=== PATIENT | female | born 1935 | race Asian ===

== ENCOUNTER 2020-09-21 17:42 | Inpatient (IN) | payer MEDICARE, OTHER ==
[~2020-09-21] VITALS: Ht 160 cm; Wt 75.3 kg
--- NOTE | 2020-09-21 18:00 | NUR ---
The patient is [facility] From [facility] "Voluntary admit to [facility]. Medically cleared need to be seen by LAB ANIMAL TECHNICIAN/PET". The patient has auditory hallucinations but does not specify what are the hallucinations about. Denies pain. In room air and denies SOB. Respiration regular and unlabored. Will continue to monitor the patient.
--- NOTE | 2020-09-21 18:48 | NUR ---
PINKY AT BEDSIDE FOR CRISIS EVAL
--- NOTE | 2020-09-21 19:03 | NUR ---
BED 211-1
--- NOTE | 2020-09-21 19:24 | NUR ---
PATIENT IS ON A HOLD. INFORMED RENETTA RN. PATIENT TRANSFERRED TO ROOM 211-A IN STABLE CONDITION.
[2020-09-21] MEDS ORDERED: ACETAMINOPHEN 325 MG TABLET PO PRN (20:00)
[2020-09-21] MEDS ORDERED: MAG HYDROX/AL HYDROX/SIMETH 30 ML UDC PO PRN (20:00)
[2020-09-21] MEDS ORDERED: MAGNESIUM HYDROXIDE 30 ML UDC PO PRN (20:00)
[2020-09-21] MEDS ORDERED: LORAZEPAM 0.5 MG TABLET PO PRN (20:00)
[2020-09-21] MEDS ORDERED: ZOLPIDEM TARTRATE 5 MG TABLET PO PRN (20:00)
[2020-09-21] MEDS ORDERED: AMLO5TAB4 PO (20:12)
[2020-09-21] MEDS ORDERED: AMYL1CAP58 PO (20:14)
[2020-09-21] MEDS ORDERED: CARV3.122 PO (20:15)
[2020-09-21] MEDS ORDERED: CELE200C PO (20:15)
[2020-09-21] MEDS ORDERED: ESCI20TA PO (20:16)
[2020-09-21] MEDS ORDERED: GEMF600T90 PO (20:17)
[2020-09-21] MEDS ORDERED: HYDR-4303 PO (20:21)
[2020-09-21] MEDS ORDERED: LEVO5TAB13 PO (20:22)
[2020-09-21] MEDS ORDERED: ONDA-97 PO (20:25)
[2020-09-21] MEDS ORDERED: PANT40TA49 PO (20:26)
[2020-09-21 20:27] VITALS: BP 138/75
[2020-09-21] MEDS ORDERED: SIME180C70 PO (20:30)
[2020-09-21] MEDS ORDERED: SIMV-46 PO (20:31)
[2020-09-21] MEDS ORDERED: ZIPR20CA2 PO (20:32)
[2020-09-21] MEDS ORDERED: BLOOD SUGAR DIAGNOSTIC 1 EACH STRIP IN ONE (21:00)
--- NOTE | 2020-09-21 22:30 | NUR ---
RN NOTES: NOTIFED LAWN CARE SPECIALIST DR. MARIE , REGARDING ABOUT NEW ADMISSION MED RECON.
[2020-09-21 22:42] VITALS: BP 130/74
--- NOTE | 2020-09-21 22:56 | NUR ---
ADMISSION NOTES: ADMITTED THIS 85Y/O FEMALE PATIENT ADMIT FROM [facility] ER /INTALLY FROM [facility], ADMITTED TO GPS ON 5150 HOLD, GRAVELY DISABLE, DTS, PER HOLD PT. AUDITORY HALLUCINATION AND ATTEMPTED OVER DOSE ,UPON FACE TO FACE ASSESSMENT PATIENT IS A&O X ,2 DISORGNIZED, COOPERTIVE, REDIRDTABLE , DENIES SI /HI AT THIS TIME, PT. IS POOR HISTORIAN, POOR INSIGHT ,POOR JUDGEMENT , PT. REFUSED TO SIGNS ADMISSION CONSENT PAPERS , DUE TO MENTAL STATUS , BOTH MD AWARE AND NOTIFIED OF THE ADMISSION, BELONGINGS CONTRABAND WERE DONE , NURSING ASSESSMENT DONE ,PT. RIGHTS DISCUSS BY AIR DEFENSE CONTROL OFFICER , PROVIDE THE PT. WITH HANDBOOK, AND MEDICATIONS GUIDE, ENVIRONMENTAL SAFETY CHECK DONE, ENCOURAGED PT. VERBALIZED ANY FEELING CONCERN TO STAFF, ORIENT TO UNIT POLICY, NO ACUTE DISTRESS NOTED,VITAL SIGNS WNL ,DENIES ANY PAIN AT THIS TIME,WILL CONTINUE TO MONITOR FOR Q15 SAFETY AND BEHAVIOR.
[2020-09-22 06:50] LABS: BASOPHILS % (AUTO) 0.4 % (0.0-2.0); EOSINOPHILS % (AUTO) 1.7 % (0.0-6.0); HEMATOCRIT 39 % (33-45); HEMOGLOBIN 12.5 g/dL (11.5-14.8); LYMPHOCYTES # (AUTO) 1.8 K/uL (0.8-4.8); LYMPHOCYTES % (AUTO) 21.4 % (20.0-44.0); MEAN CORPUSCULAR HGB CONC 33 g/dl (31.0-36.0); MEAN CORPUSCULAR VOLUME 97 fL (82-100); MONOCYTES # (AUTO) 0.8 K/uL (0.1-1.30); MONOCYTES % (AUTO) 9.4 % (2.0-12.0); NEUTROPHILS # (AUTO) 5.8 K/uL (1.8-8.9); NEUTROPHILS % (AUTO) 67.1 % (43.0-81.0); PLATELET COUNT (AUTO) 169 K/uL (150-450); RED BLOOD CELL COUNT(AUTO) 3.99 MIL/uL (4.0-5.2); WHITE BLOOD COUNT (AUTO) 8.6 K/uL (4.3-11.0)
[2020-09-22 06:58] LABS: POTASSIUM 3.9 mmol/L (3.5-5.1)
[2020-09-22 08:00] VITALS: BP 151/56
[2020-09-22] MEDS ORDERED: SIMETHICONE 80 MG TAB.CHEW PO PRN (11:30)
[2020-09-22] MEDS ORDERED: HYDROCODONE/APAP 5/325MG TABLET PO PRN (11:30)
[2020-09-22] MEDS ORDERED: ONDANSETRON 4 MG TAB.RAPDIS PO PRN (12:00)
[2020-09-22] MEDS: AMLODIPINE BESYLATE 5 MG TABLET PO SCH (12:03)
[2020-09-22] MEDS: LIPASE/PROTEASE/AMYLASE 1 EACH CAPSULE.DR PO SCH ×2 (12:43→17:43)
[2020-09-22] MEDS: risperiDONE 0.25 MG TABLET PO SCH (16:10)
[2020-09-22 16:11] VITALS: BP 148/67
[2020-09-22] MEDS: CARVEDILOL 3.125 MG TABLET PO SCH (16:11)
[2020-09-22] MEDS: GEMFIBROZIL 600 MG TABLET PO SCH (16:12)
--- NOTE | 2020-09-22 17:22 | NUR ---
GPS RN NOTE: NEUROLOGY CONSULT DR. MACDONALD ORDER BY DR STARKEY .OFFICE CLOSE AT THIS TIME WILL INDORSE TO INCOMING RN TO FOLLOW UP
[2020-09-22] MEDS: SIMVASTATIN 20 MG TABLET PO SCH (17:43)
[2020-09-22 19:50] VITALS: BP 115/64
[2020-09-22 20:09] VITALS: BP 115/64
[2020-09-22] MEDS: CELECOXIB 100 MG CAPSULE PO SCH (20:58)
[2020-09-23 08:00] VITALS: BP 150/73
[2020-09-23] MEDS: LIPASE/PROTEASE/AMYLASE 1 EACH CAPSULE.DR PO SCH ×3 (08:00→18:30)
[2020-09-23] MEDS: CARVEDILOL 3.125 MG TABLET PO SCH ×2 (09:13→17:47)
[2020-09-23] MEDS: CELECOXIB 100 MG CAPSULE PO SCH ×2 (09:14→21:26)
[2020-09-23] MEDS: VENLAFAXINE XR 75 MG CAP.SR.24H PO SCH (09:14)
[2020-09-23] MEDS: risperiDONE 0.25 MG TABLET PO SCH ×2 (09:14→17:47)
[2020-09-23] MEDS: GEMFIBROZIL 600 MG TABLET PO SCH ×2 (09:14→17:47)
[2020-09-23] MEDS: PANTOPRAZOLE 40 MG TABLET.DR PO SCH (09:14)
[2020-09-23] MEDS: AMLODIPINE BESYLATE 5 MG TABLET PO SCH (09:15)
[2020-09-23 16:00] VITALS: BP 135/66
[2020-09-23] MEDS: SIMVASTATIN 20 MG TABLET PO SCH (18:30)
[2020-09-23 20:00] VITALS: BP 151/67
--- NOTE | 2020-09-23 20:08 | NUR ---
GPS RN OPENING NOTES: RECEIVED PATIENT SLEEP IN BED AROUSABLE TO VERBAL STIMULI, NO COMPLAIN OF PAIN AND DISCOMFORT AT THIS TIME, PATIENT APPEARS CALM, VERBALLY RESPONSIVE, BED IN LOW POSITION , CALL LIGHTS WITHIN REACH, KEPT CLEAN AND DRY, WILL CONTINUE TO MONITOR.
[2020-09-24] MEDS: LIPASE/PROTEASE/AMYLASE 1 EACH CAPSULE.DR PO SCH ×3 (07:49→17:43)
[2020-09-24] MEDS: PANTOPRAZOLE 40 MG TABLET.DR PO SCH (07:49)
[2020-09-24 08:00] VITALS: BP 138/80
[2020-09-24] MEDS: GEMFIBROZIL 600 MG TABLET PO SCH ×2 (08:27→17:43)
[2020-09-24] MEDS: CELECOXIB 100 MG CAPSULE PO SCH ×2 (08:27→21:22)
[2020-09-24] MEDS: CARVEDILOL 3.125 MG TABLET PO SCH ×2 (08:28→17:43)
[2020-09-24] MEDS: VENLAFAXINE XR 75 MG CAP.SR.24H PO SCH (08:28)
[2020-09-24] MEDS: risperiDONE 0.25 MG TABLET PO SCH ×2 (08:28→17:46)
[2020-09-24] MEDS: AMLODIPINE BESYLATE 5 MG TABLET PO SCH (08:28)
--- NOTE | 2020-09-24 09:34 | NUR ---
RN NOTE- PT IN ROOM, REQUESTING TO GO HOME, MED COMPLIANT PO INTAKE FAIR , A BIT GUARDED AND PARANOID, DEPRESSED, DENIES [facility] SI HI
--- NOTE | 2020-09-24 11:35 | NUR ---
Family Contact: SW called the pts son, Jens ([phone]), and discussed the pts discharge plan to return to her home once she is stable.
--- NOTE | 2020-09-24 12:49 | NUR ---
Initial Discharge Plan: Pt currently resides at her apartment located at [address] [place] [address], [address] [address]; ([phone]). Per pt, she would like to return to her home. SW will work with the pt and pts MD regarding appropriate discharge planning. SW will form a safe and proper discharge.
[2020-09-24 16:00] VITALS: BP 183/90
[2020-09-24] MEDS: SIMVASTATIN 20 MG TABLET PO SCH (17:43)
[2020-09-24 20:00] VITALS: BP 145/80
--- NOTE | 2020-09-25 06:09 | NUR ---
GPS RN CLOSING NOTE PT A/OX2 CONFUSED AT TIMES; LYING IN BED. TOLERATING ROOM AIR WELL WITH NO SOB. NO S/SX OF PAIN AT THIS TIME. NO ACUTE DISTRESS NOTED. DENIES SI/HI AT THIS TIME. COMPLIANT WITH CARE AND MEDS AT THIS TIME. SAFETY MEASURES IN PLACE: BED IN LOWEST LOCKED POSITION, SIDE RAILS UPX2. WILL ENDORSE PLAN OF CARE TO ONCOMING MORNING RN
[2020-09-25 08:00] VITALS: BP 154/77
[2020-09-25] MEDS: risperiDONE 0.25 MG TABLET PO SCH ×2 (08:22→17:20)
[2020-09-25] MEDS: LIPASE/PROTEASE/AMYLASE 1 EACH CAPSULE.DR PO SCH ×3 (08:22→17:20)
[2020-09-25] MEDS: VENLAFAXINE XR 75 MG CAP.SR.24H PO SCH (08:22)
[2020-09-25] MEDS: GEMFIBROZIL 600 MG TABLET PO SCH ×2 (08:22→17:21)
[2020-09-25] MEDS: CARVEDILOL 3.125 MG TABLET PO SCH ×2 (08:23→17:21)
[2020-09-25] MEDS: CELECOXIB 100 MG CAPSULE PO SCH ×2 (08:24→20:58)
[2020-09-25] MEDS: PANTOPRAZOLE 40 MG TABLET.DR PO SCH (08:24)
[2020-09-25] MEDS: AMLODIPINE BESYLATE 5 MG TABLET PO SCH (08:24)
[2020-09-25] MEDS: VENLAFAXINE XR 37.5 MG CAP.SR.24H PO SCH (08:30)
[2020-09-25] MEDS: SIMVASTATIN 20 MG TABLET PO SCH (17:20)
[2020-09-25 20:00] VITALS: BP 110/71
[2020-09-26] MEDS: PANTOPRAZOLE 40 MG TABLET.DR PO SCH (07:58)
[2020-09-26 08:00] VITALS: BP 158/78
[2020-09-26] MEDS: CELECOXIB 100 MG CAPSULE PO SCH ×2 (08:32→20:49)
[2020-09-26] MEDS: GEMFIBROZIL 600 MG TABLET PO SCH ×2 (08:32→16:25)
[2020-09-26] MEDS: risperiDONE 0.25 MG TABLET PO SCH ×2 (08:32→16:25)
[2020-09-26] MEDS: CARVEDILOL 3.125 MG TABLET PO SCH ×2 (08:33→16:28)
[2020-09-26] MEDS: VENLAFAXINE XR 37.5 MG CAP.SR.24H PO SCH (08:33)
[2020-09-26] MEDS: LIPASE/PROTEASE/AMYLASE 1 EACH CAPSULE.DR PO SCH ×3 (08:33→17:49)
[2020-09-26] MEDS: AMLODIPINE BESYLATE 5 MG TABLET PO SCH (08:34)
--- NOTE | 2020-09-26 09:00 | NUR ---
RN NOTE: PT IN ROOM, MED COMPLIANT PO INTAKE FAIR, DEPRESSED, DENIES [facility] SI HI PT VISIBLE IN UNIT, AMBULATORY WITH FWW
--- NOTE | 2020-09-26 11:01 | NUR ---
Family contact: SW called the pts son, Jens ([phone]) and informed him that pt is going to be discharged on Thursday09/28/2020. Pts son reports that he can picker and packer pt from [facility]. Pts son reports that pts is under the care of mixer blender [place] ([phone]). SW reports that she will make a follow up appointment for pt.
[2020-09-26 16:00] VITALS: BP 129/61
--- NOTE | 2020-09-26 16:05 | NUR ---
Contact with [facility]: SW contacted [facility] located at [address], [place] [address]; ; fax: to schedule an intake appt for pt. The intake appointment is scheduled for October 04, 2020 @ 10:30 am.
--- NOTE | 2020-09-26 16:08 | NUR ---
Contact with [facility]: VIJAY contacted the appointment line at [facility] located at [address]. [place], [place]; . VIJAY scheduled a follow up appt for pt with manager office Dr. Flores for October 03, 2020 at 11:30 am.
[2020-09-26] MEDS: SIMVASTATIN 20 MG TABLET PO SCH (17:49)
[2020-09-26 20:26] VITALS: BP 163/85
[2020-09-27 08:00] VITALS: BP 156/70
[2020-09-27] MEDS: VENLAFAXINE XR 37.5 MG CAP.SR.24H PO SCH (08:25)
[2020-09-27] MEDS: GEMFIBROZIL 600 MG TABLET PO SCH ×2 (08:25→16:43)
[2020-09-27] MEDS: PANTOPRAZOLE 40 MG TABLET.DR PO SCH (08:25)
[2020-09-27] MEDS: LIPASE/PROTEASE/AMYLASE 1 EACH CAPSULE.DR PO SCH ×3 (08:25→18:14)
[2020-09-27] MEDS: AMLODIPINE BESYLATE 5 MG TABLET PO SCH (08:26)
[2020-09-27] MEDS: CELECOXIB 100 MG CAPSULE PO SCH ×2 (08:26→20:38)
[2020-09-27] MEDS: risperiDONE 0.25 MG TABLET PO SCH ×2 (08:26→16:43)
[2020-09-27] MEDS: CARVEDILOL 3.125 MG TABLET PO SCH ×2 (08:26→16:44)
--- NOTE | 2020-09-27 10:14 | NUR ---
Probable cause hearing: Pts 5250 hold was upheld on the grounds of gravely disabled.
--- NOTE | 2020-09-27 14:50 | NUR ---
Family contact: VIJAY contacted pts son Jens ([phone]) to inform him pts after care appointments. VIJAY reports that pt will be under the care of Tech Writer Dr. Flores at [facility] located at [address] [place], [place]; . Pt has an appointment on Saturday October 03, 2020 at 11:30 am. For psychiatric services, pt was referred to [facility] located at [address] [place] [address], [address], [place] [address]; ; fax: . Pt has an intake appt scheduled for October 04, 2020 at 10:30 am via phone.
[2020-09-27 16:08] VITALS: BP 145/71
[2020-09-27] MEDS: SIMVASTATIN 20 MG TABLET PO SCH (18:14)
--- NOTE | 2020-09-27 20:16 | NUR ---
RN NOTE COVID 19 SPECIMEN COLLECTED & SENT TO LAB.
[2020-09-27 20:18] VITALS: BP 132/56
[2020-09-27 20:28] VITALS: BP 132/56
[2020-09-28 08:00] VITALS: BP 155/85
[2020-09-28] MEDS: AMLODIPINE BESYLATE 5 MG TABLET PO SCH (08:12)
[2020-09-28] MEDS: GEMFIBROZIL 600 MG TABLET PO SCH (08:12)
[2020-09-28] MEDS: LIPASE/PROTEASE/AMYLASE 1 EACH CAPSULE.DR PO SCH ×2 (08:12→12:01)
[2020-09-28] MEDS: CELECOXIB 100 MG CAPSULE PO SCH (08:12)
[2020-09-28] MEDS: VENLAFAXINE XR 37.5 MG CAP.SR.24H PO SCH (08:12)
[2020-09-28] MEDS: PANTOPRAZOLE 40 MG TABLET.DR PO SCH (08:12)
[2020-09-28] MEDS: risperiDONE 0.25 MG TABLET PO SCH (08:12)
[2020-09-28 08:13] VITALS: BP 155/85
[2020-09-28] MEDS: CARVEDILOL 3.125 MG TABLET PO SCH (08:13)
--- NOTE | 2020-09-28 09:25 | NUR ---
Dr. Chapin gave an order to D/C hold and D/C home and to follow up with psych and medical doctors.
--- NOTE | 2020-09-28 13:40 | NUR ---
Discharge: Pt was discharged home located at [address], [address], [place] [address]; ([phone]). Pts son Jens ([phone]) will pick pt up from [facility] at 1 pm. Upon discharge, pt is alert and oriented x2. Pt appears to be in a depressed mood and is cooperative. Pt denied both suicidal and homicidal. Pt will be under the care of Web Application Developer Dr. Flores at [facility] located at [address]. [place], [place]; . Pt has an appointment on Saturday October 03, 2020 at 11:30 am. For psychiatric services, pt was referred to [facility] located at [address] [place] [address], [address], [place] [address]; ; fax: . Pt has an intake appt scheduled for October 04, 2020 at 10:30 am via phone. The multidisciplinary exit care form was done, printed, signed, and given to the patient.
--- NOTE | 2020-09-28 13:43 | NUR ---
RN-DISCHARGE NOTES DR. STARKEY (PSYCHIATRIST) GAVE T.O DISCHARGE ORDER/ DR. PATRICIA ( COPIER REPAIR TECHNICIAN ) WAS AWARE WITH ORDERS. PATIENT WAS DISCHARGED TO HOME. PATIENT DID NOT VERBALIZE SI/HI,DENIES VISUAL/AUDITORY HALLUCINATIONS AT THE TIME OF DISCHARGE. HAMMER REPAIRER BY SON JEREMIAS VIA PRIVATE CAR. ALL DISCHARGE PAPERS INCLUDING RX WAS REVIEWED AND ENDORSED WITH THE SON WITH UNDERSTANDING. PATIENT LEFT THE UNIT IN STABLE CONDITION,ALERT ORIENTED X3,NO ACUTE DISTRESS NOTED, ABLE TO AMBULATE USING WALKER. VITAL SIGNS OF BP 128/72, P, 68,R,19,ND O2 SAT OF 99% RA.PATIENT LEFT THE UNIT AROUND 1325 AND WAS WHEELED BY THE ASSOCIATE ACCOUNT MANAGER IN THE LOBBY FOR SAFETY. ALL BELONGINGS WAS GIVEN BACK TO THE PATIENT,MASK WAS PROVIDED.
== END 2020-09-28 13:25 | disposition home or self-care (01) | DRG 885 ==
LOC: ER 18:12 → GPS 19:23
PROVIDERS: ADMIT Psychiatry & Neurology Psychiatry; ATTEND Nurse Practitioner Acute Care
DX: F33.3 Major depressive disorder, recurrent, severe with psychotic symptoms (principal); E66.9 Obesity, unspecified; F41.9 Anxiety disorder, unspecified; I10 Essential (primary) hypertension; K21.9 Gastro-esophageal reflux disease without esophagitis; E78.5 Hyperlipidemia, unspecified; E78.00 Pure hypercholesterolemia, unspecified; G89.29 Other chronic pain; M54.9 Dorsalgia, unspecified; F09 Unspecified mental disorder due to known physiological condition; K86.81 Exocrine pancreatic insufficiency; Z79.899 Other long term (current) drug therapy; Z68.29 Body mass index [BMI] 29.0-29.9, adult; R41.82 Altered mental status, unspecified; Z88.4 Allergy status to anesthetic agent; Z88.0 Allergy status to penicillin; K92.89 Other specified diseases of the digestive system; Z20.822 Contact with and (suspected) exposure to COVID-19
CPT/HCPCS: 36415; 70450-TC; 80048-TC; 80061-TC; 82962-TC; 85025-TC; 87081-TC; 97112-TC; 97116-TC; 97530-TC

== ENCOUNTER 2021-11-19 20:27 | Inpatient (IN) | payer MEDICARE, OTHER ==
[~2021-11-19] VITALS: Ht 149.9 cm; Wt 60.3 kg
[~2021-11-19 20:27] MED LIST: AMLO5TAB4 PO; AMYL1CAP58 PO; CARV3.122 PO; CELE200C PO; GEMF600T90 PO; HYDR-4303 PO; LEVO5TAB13 PO; ONDA-97 PO; PANT40TA49 PO; SIME180C47 PO; SIMV-46 PO
--- NOTE | 2021-11-19 20:40 | NUR ---
ZEB FROM [facility] C/O MED CLEARANCE. PT AOX1. TOLERATING R/A WELL WITH NO RESP DISTRESS. BRUISING NOTED TO FOREHEAD,BUE AND BLE. SAFETY MEASURES IN PLACE. 1:1 SITTER AT PT'S BEDSIDE.
--- NOTE | 2021-11-19 21:07 | NUR ---
COVID ANTIGEN, MRSA, AND URINE COLLECTED AND SENT TO LAB
--- NOTE | 2021-11-19 21:18 | NUR ---
AUGER OPERATOR AT PT'S BEDSIDE
[2021-11-19 21:32] LABS: BASOPHILS % (AUTO) 0.3 % (0.0-2.0); EOSINOPHILS % (AUTO) 3.9 % (0.0-6.0); HEMATOCRIT 38 % (33-45); HEMOGLOBIN 12.3 g/dL (11.5-14.8); LYMPHOCYTES # (AUTO) 2.1 K/uL (0.8-4.8); LYMPHOCYTES % (AUTO) 31.6 % (20.0-44.0); MEAN CORPUSCULAR HGB CONC 32 g/dl (31.0-36.0); MEAN CORPUSCULAR VOLUME 97 fL (82-100); MONOCYTES # (AUTO) 0.6 K/uL (0.1-1.30); MONOCYTES % (AUTO) 8.5 % (2.0-12.0); NEUTROPHILS # (AUTO) 3.7 K/uL (1.8-8.9); NEUTROPHILS % (AUTO) 55.7 % (43.0-81.0); PLATELET COUNT (AUTO) 112 K/uL (150-450); RED BLOOD CELL COUNT(AUTO) 3.92 MIL/uL (4.0-5.2); WHITE BLOOD COUNT (AUTO) 6.6 K/uL (4.3-11.0)
[2021-11-19 21:49] LABS: ALANINE AMINOTRANSFERASE 58 U/L (12-78); ALCOHOL, BLOOD < 3 mg/dL (0-0); ALKALINE PHOSPHATASE 63 U/L (46-116); ASPARTATE AMINOTRANSFERASE 43 U/L (15-37); BILIRUBIN,DIRECT 0.2 mg/dL (0.0-0.2); BILIRUBIN,TOTAL 0.6 mg/dL (0.2-1.0); CALCIUM, SERUM 8.7 mg/dL (8.5-10.1); CARBON DIOXIDE 27 mmol/L (21-32); CHLORIDE 108 mmol/L (98-107); CREATININE 0.8 mg/dL (0.6-1.3); GLUCOSE 107 mg/dL (74-106); POTASSIUM 3.6 mmol/L (3.5-5.1); SODIUM SERUM 143 mmol/L (136-145); TOTAL PROTEIN, SERUM 6.1 g/dL (6.4-8.2); UREA NITROGEN, BLOOD 23 mg/dL (7-18)
[2021-11-19 21:55] LABS: ACETAMINOPHEN < 10 ug/ml (10-30)
--- NOTE | 2021-11-19 22:58 | NUR ---
PT RETURNED TO ER BED 11
--- NOTE | 2021-11-20 00:11 | NUR ---
ELIZABETH, TRASH COLLECTOR PAGED FOR EVAL
--- NOTE | 2021-11-20 00:11 | NUR ---
ROOM 220B GPS
--- NOTE | 2021-11-20 00:14 | NUR ---
REPORT GIVEN TO GIL TARANGO RN FOR WAQAR
[2021-11-20] MEDS: GEMFIBROZIL 600 MG TABLET PO SCH ×3 (00:30→16:21)
[2021-11-20] MEDS ORDERED: SIMETHICONE 80 MG TAB.CHEW PO PRN (00:30)
[2021-11-20] MEDS ORDERED: AMLODIPINE BESYLATE 5 MG TABLET ONE (01:25)
[2021-11-20] MEDS ORDERED: CARVEDILOL 3.125 MG TABLET ONE (01:25)
[2021-11-20] MEDS ORDERED: SIMVASTATIN 20 MG TABLET ONE (01:26)
[2021-11-20] MEDS: CARVEDILOL 3.125 MG TABLET PO SCH ×3 (01:34→16:21)
[2021-11-20] MEDS: AMLODIPINE BESYLATE 5 MG TABLET PO SCH ×2 (01:34→08:13)
[2021-11-20] MEDS: SIMVASTATIN 20 MG TABLET PO SCH ×2 (01:35→22:07)
[2021-11-20 01:45] VITALS: BP 125/47
--- NOTE | 2021-11-20 01:45 | NUR ---
GPS POULTRY FARMWORKER NOTE ADMITTED 86 Y/O FEMALE PATIENT FROM ER, PT IS RESIDENT OF [facility] , ADMIT TO GPS UNIT. PATIENT IS ON 5150 HOLD FOR DTS. PER 5150 HOLD, AGITATION AND AGGRESSIVENESS UPON FACE TO FACE EVALUATION, PATIENT IS A & O X 1 FORGETFUL, CONFUSED AT TIMES, DISORGANIZED, LABILE, PT UNABLE TO SPEAK WALLISIAN. STATES "VERY LITTLE WALLISIAN" DENIES SI/HI UPON ADMISSION AND WILLING TO CONTRACT FOR SAFETY. REDIRECTABLE AT THIS TIME. UNSTEADY GAIT, FALL RISK. PT EVAL ORDERED. NO ACUTE DISTRESS NOTED. NO C/O PAIN VERBALIZED AT THIS TIME. PATIENT UNABLE TO SIGN ALL ADMISSION PAPERWORK. BS 98 MG/DL, FULL BODY SKIN ASSESSMENT DONE, PICTURES TAKEN. PATIENT ADVISED OF HIS HOLD AND PATIENT RIGHTS BOOKLET AND PRESCRIPTION MEDICATION GUIDE GIVEN. PATIENT BELONGINGS WERE INVENTORIED FOR [employer]. PT IS UNDER THE PSYCHIATRIC CARE OF DR. BRO AND [facility] OF [facility]. PATIENT BED IS IN LOW LOCKED POSITION, SIDE RAILS UP X 3 FOR SAFETY. BED ALARM IS ON. WILL CONTINUE TO MONITOR Q15 MINS FOR MOOD, SAFETY AND BEHAVIOR.
--- NOTE | 2021-11-20 01:55 | NUR ---
PT TRANSFERRED TO GPS VIA HOSPITAL PROTOCOL. VSS. PT ON 5150 HOLD PLACED BY ELIZABETH MORRISON LCSW FOR GD.
[2021-11-20] MEDS ORDERED: ACETAMINOPHEN 325 MG TABLET PO PRN (02:00)
[2021-11-20] MEDS ORDERED: MAG HYDROX/AL HYDROX/SIMETH 30 ML UDC PO PRN (02:00)
[2021-11-20] MEDS ORDERED: BLOOD SUGAR DIAGNOSTIC 1 EACH STRIP IN ONE (02:00)
[2021-11-20] MEDS ORDERED: LORAZEPAM 0.5 MG TABLET PO PRN (02:00)
[2021-11-20] MEDS ORDERED: MAGNESIUM HYDROXIDE 30 ML UDC PO PRN (02:00)
[2021-11-20] MEDS ORDERED: QUETIAPINE FUMARATE 25 MG TABLET PO PRN (07:00)
[2021-11-20] MEDS: PANTOPRAZOLE 40 MG TABLET.DR PO SCH (07:49)
[2021-11-20] MEDS: LIPASE/PROTEASE/AMYLASE 1 EACH CAPSULE.DR PO SCH ×3 (07:50→17:39)
[2021-11-20 08:00] VITALS: BP 142/64
[2021-11-20 08:17] LABS: CREATININE 0.6 mg/dL (0.6-1.3)
[2021-11-20] MEDS ORDERED: MONT10TA22 PO (09:33)
[2021-11-20] MEDS ORDERED: MULT-447 PO (09:33)
[2021-11-20] MEDS ORDERED: ACET-868 PO (09:33)
[2021-11-20] MEDS ORDERED: NA P133E RC (09:33)
[2021-11-20] MEDS ORDERED: LORA-259 PO (09:33)
[2021-11-20] MEDS ORDERED: VITA40TA PO (09:33)
[2021-11-20] MEDS ORDERED: ATOR40TA PO (09:33)
[2021-11-20] MEDS ORDERED: LIPA1CAP15 PO (09:33)
[2021-11-20] MEDS ORDERED: ASPI-1169 PO (09:33)
[2021-11-20] MEDS ORDERED: VENL75TA4 PO (09:33)
[2021-11-20] MEDS ORDERED: OLAN2.5T3 PO (09:33)
[2021-11-20] MEDS ORDERED: APIX5TAB PO (09:33)
[2021-11-20] MEDS ORDERED: CHOL100043 PO (09:33)
[2021-11-20] MEDS ORDERED: MAGN400O6 PO (09:33)
[2021-11-20] MEDS ORDERED: BISA10SU11 RC (09:33)
--- NOTE | 2021-11-20 10:04 | NUR ---
WOUND CARE CONSULT: PT PRESENTS WITH SACRAL INTACT DEEP TISSUE INJURY AND MULTIPLE AREAS OF SKIN DISCOLORATION ON ARMS, LEGS AND FOREHEAD, PRESENT ON ADMISSION. PT WAS SINGING, THEN BEGAN SLAPPING STAFF AND SPITTING. DISCUSSED SKIN PROTECTION WITH NURSING STAFF.MD IN AGREEMENT WITH PLAN OF CARE.
[2021-11-20] MEDS: Z GUARD REMEDY 4 OZ OINT TP SCH (11:09)
--- NOTE | 2021-11-20 12:55 | NUR ---
INITIAL DISCHARGE PLAN: THE PT. CURRENTLY RESIDES AT [facility] [[address] [facility] ]AND FACILITY STATED THE PT NEEDS HIGHER LEVEL OF CARE SPECIFICALLY FOR DEMENTIA AND PT.'S SON, JEREMIAS [phone] IS AGREEABLE. SW WILL CONTINUE TO COLLABORATE WITH PSYCHIATRIST TO PLAN A SAFE & PROPER DISCHARGE PLAN.
--- NOTE | 2021-11-20 12:56 | NUR ---
POINT OF CONTACT: VIJAY CALLED AND SPOKE TO THE PT.'S SON, JEREMIAS [phone] TO GATHER COLLATERAL INFORMATION. HE STATED HE IS THE POA AND WILL BE INVOLVED IN TREATMENT AND DISCHARGE PLAN. [facility] VIJAY Bre STATED SHE WILL HELP WITH DISCHARGE AND WILL FAX OVER THE POA PAPERWORK.
[2021-11-20 16:00] VITALS: BP 119/61
[2021-11-20 20:00] VITALS: BP 123/62
[2021-11-20] MEDS: MIRTAZAPINE 15 MG TABLET PO SCH (22:06)
[2021-11-20] MEDS: QUETIAPINE FUMARATE 25 MG TABLET PO SCH (22:07)
[2021-11-21 07:21] LABS: BILIRUBIN,URINE SMALL (NEGATIVE); COLOR,URINE DARK YELLOW (YELLOW); LEUKOCYTE ESTERASE ,URINE LARGE (NEGATIVE); NITRITE, URINE POSITIVE (NEGATIVE); PH,URINE 8.5 (5.0-8.0); PROTEIN,URINE >=300 mg/dl (NEGATIVE); UGLUCOSE NEGATIVE (NEGATIVE)
--- NOTE | 2021-11-21 07:58 | NUR ---
RN-CO: NOTIFIED DR ZUNIGA OF URINALYSIS RESULT, AWAITING FOR REPLY.
[2021-11-21 08:00] VITALS: BP 125/60
[2021-11-21] MEDS: ENSURE ENLIVE 237 ML LIQUID (VANILLA) PO SCH ×3 (09:00→17:07)
[2021-11-21 09:22] LABS: HDL CHOLESTEROL 51 mg/dL (40-60); LDL 53 mg/dL (0-99); TRIGLYCERIDES 58 mg/dL (30-150)
[2021-11-21 09:35] LABS: BACTERIA,URINE Many /HPF (None Seen); SQUAMOUS EPITHELIAL CELL,UR None Seen /HPF (None Seen); TRIPLE PHOSPHATE CRYSTAL,UR Moderate /HPF (None Seen)
--- NOTE | 2021-11-21 10:07 | NUR ---
SNF REFERRAL: VIJAY faxed clinicals to [facility] FAX:[phone] TEL:[phone]. VIJAY will follow up as needed.
--- NOTE | 2021-11-21 10:08 | NUR ---
SNF REFERRAL: VIJAY faxed clinicals to [facility] FAX:[phone] TEL:[phone]. VIJAY will follow up as needed. Addendum: 11/21/21 at 1022 by HAYLEE LINARES correction:[facility] FAX:[phone]
[2021-11-21 10:16] LABS: CHOLESTEROL 109 mg/dL (<200)
[2021-11-21] MEDS: AMLODIPINE BESYLATE 5 MG TABLET PO SCH (10:49)
[2021-11-21] MEDS: GEMFIBROZIL 600 MG TABLET PO SCH ×2 (10:49→16:54)
[2021-11-21] MEDS: PANTOPRAZOLE 40 MG TABLET.DR PO SCH (10:49)
[2021-11-21] MEDS: Z GUARD REMEDY 4 OZ OINT TP SCH (10:50)
[2021-11-21] MEDS: CARVEDILOL 3.125 MG TABLET PO SCH ×2 (10:50→16:55)
[2021-11-21] MEDS: LIPASE/PROTEASE/AMYLASE 1 EACH CAPSULE.DR PO SCH ×4 (11:00→18:43)
[2021-11-21] MEDS: SULFAMETH/TRIMETH 800/160 MG 1 UDTAB TABLET PO SCH ×2 (11:32→21:56)
[2021-11-21] MEDS: cetrizine 10 MG TABLET PO SCH (11:32)
--- NOTE | 2021-11-21 12:09 | NUR ---
FAMILY CALLED 2 X TO CHECK ON PT, SHE IS COMPLAINT WITH MEDICATION ORDERS AND COOPERATIVE WITH CARE, SHE HAS RESTED AND BEEN ASLEEP ON AND OFF IN HER BED DURING AM SHIFT, WILL CONTINUE TO MONITOR AND REPOSITIONING FOR COMFORT MEASURES AND SKIN PROTECTION Q 2 HOURS OR MORE PT CAN TURN AND REPOSITION SELF WELL.
--- NOTE | 2021-11-21 12:58 | NUR ---
PT IN BED AND COOPERATIVE WITH CARE, REDIRECTED AT TIMES, BED LOW TO FLOOR, ALL WHEELS LOCKED, PT IS SLEEPING ON AND OFF DURING ALL OF AM SHIFT, COMPLIANT WITH CARE AT THIS TIME.
[2021-11-21 16:00] VITALS: BP 138/69
[2021-11-21] MEDS ORDERED: BISACODYL SUPP (10 MG) 10 MG/SUPP.RECT SUPP.RECT RC PRN (16:00)
[2021-11-21] MEDS ORDERED: NA PHOS,M-B/NA PHOS,DI-BA 1 EA ENEMA RC PRN (16:00)
[2021-11-21] MEDS ORDERED: MAGNESIUM HYDROXIDE 30 ML UDC PO PRN (16:00)
[2021-11-21] MEDS: APIXABAN 2.5 MG TABLET PO SCH (17:44)
--- NOTE | 2021-11-21 19:07 | NUR ---
PT SLEPT DURING AM SHIFT, COMPLIANT WITH CARE AND TOOK ALL PO MEDICATION ORDERS CRUSHED WITH APPLE SAUCE, NO ASPIRATIONS NOTED AND NO C/O PAIN, SHOWED NO S/S OF ANY DISTRESS AND NO SOB NOTED, BED WHEELS LOCKED AND IN LOW POSITION, ALL NEEDS TENDED TO IN A TIMELY MANNER, GADIEL CARE PROVIDED ATTEMPTED SEVERAL TIMES TO CATCH A CLEAN VOID HOWEVER NO URINE PROVIDED TO CATCH, SOME VOID IN DIAPER BUT UNABLE TO OBTAIN A CLEAN CATCH SPECIMEN, WILL RELAY TASK TO ONCOMING SHIFT NURSE TO TRY TO CATCH VOID WHEN POSSIBLE.
--- NOTE | 2021-11-21 19:42 | NUR ---
GPS RN OPENING NOTES: RECEIVED PATIENT LAYING IN BED. A/O X1. APPEARS DEPRESSED, FLAT AFFECT, DISORGANIZED, DISORIENTED, CONFUSED, PASSIVE, WITHDRAWN, POOR INSIGHT, POOR JUDGEMENT. NO S/S OF DISTRESS. RESPIRATION EVEN AND UNLABORED WITH EQUAL RISE AND FALL OF THE CHEST, ON ROOM AIR. OFFERED FLUID AND SNACKS TOLERATED. BED IN LOWEST POSITION AND LOCKED, SIDE RAILS UP X2 FOR SAFETY. WILL CONTINUE TO MONITOR Q15 FOR MOOD, SAFETY AND BEHAVIOR.
[2021-11-21 20:00] VITALS: BP 108/65
[2021-11-21] MEDS: QUETIAPINE FUMARATE 25 MG TABLET PO SCH (21:56)
[2021-11-21] MEDS: ATORVASTATIN 40 MG TABLET PO SCH (21:57)
[2021-11-21] MEDS: MIRTAZAPINE 15 MG TABLET PO SCH (21:57)
[2021-11-21] MEDS: ZOLPIDEM TARTRATE 5 MG TABLET PO PRN (22:13)
--- NOTE | 2021-11-21 22:16 | NUR ---
GPS RN NOTES: AMBIEN 5MG 1TAB GIVEN PO AT 2213 FOR SLEEP. WILL CONTINUE TO MONITOR.
--- NOTE | 2021-11-21 22:18 | NUR ---
GPS RN NOTES: BACTRIM 800/160MG, 0.5MG PARTIAL DOSE WASTED PER ORDER. SEROQUEL 12.5MG WASTED PER PARTIAL DOSE ORDER. REMERON 7.5MG WASTED PER PARTIAL DOSE ORDER.
--- NOTE | 2021-11-22 07:00 | NUR ---
GPS RN OPENING NOTES PATIENT LAYING IN BED. A/O X1. APPEARS DEPRESSED, LABILE, BLUNTED AFFECT, DISORGANIZED, DISORIENTED, CONFUSED, ANXIOUS, RESTLESS, YELLING, POOR INSIGHT, POOR JUDGEMENT, NEEDS FREQUENT REDIRECTION. NO S/S OF DISTRESS. RESPIRATION EVEN AND UNLABORED WITH EQUAL RISE AND FALL OF THE CHEST, ON ROOM AIR. OFFERED FLUID AND SNACKS TOLERATED. BED IN LOWEST POSITION AND LOCKED, SIDE RAILS UP X2 FOR SAFETY. WILL CONTINUE TO MONITOR Q15 FOR MOOD, SAFETY AND BEHAVIOR.
[2021-11-22] MEDS: PANTOPRAZOLE 40 MG TABLET.DR PO SCH ×2 (07:30→07:58)
[2021-11-22] MEDS: LIPASE/PROTEASE/AMYLASE 1 EACH CAPSULE.DR PO SCH ×6 (07:40→17:05)
[2021-11-22 08:00] VITALS: BP 148/64
[2021-11-22] MEDS: CHOLECALCIFEROL 1,000 UNIT TABLET (VIT D3) PO SCH (08:33)
[2021-11-22] MEDS: ASPIRIN 81 MG TAB.CHEW PO SCH (08:33)
[2021-11-22] MEDS: cetrizine 10 MG TABLET PO SCH (08:33)
[2021-11-22] MEDS: CARVEDILOL 3.125 MG TABLET PO SCH ×2 (08:33→16:29)
[2021-11-22] MEDS: AMLODIPINE BESYLATE 5 MG TABLET PO SCH (08:34)
[2021-11-22] MEDS: APIXABAN 2.5 MG TABLET PO SCH ×2 (08:35→17:04)
[2021-11-22] MEDS: MONTELUKAST SODIUM (10MG) 10 MG TABLET PO SCH (08:35)
[2021-11-22] MEDS: SULFAMETH/TRIMETH 800/160 MG 1 UDTAB TABLET PO SCH ×2 (08:35→22:02)
[2021-11-22] MEDS: GEMFIBROZIL 600 MG TABLET PO SCH ×2 (08:35→16:28)
[2021-11-22] MEDS: ENSURE ENLIVE 237 ML LIQUID (VANILLA) PO SCH ×3 (08:36→17:05)
[2021-11-22] MEDS: Z GUARD REMEDY 4 OZ OINT TP SCH (08:38)
[2021-11-22] MEDS: MULTIVIT W/MINERALS 1 TAB TABLET PO SCH (08:50)
[2021-11-22] MEDS ORDERED: Medication Not On Formulary EA (Vitamin K2 100 MCG) PO SCH (09:00)
[2021-11-22] MEDS: QUETIAPINE FUMARATE 25 MG TABLET PO PRN ×3 (10:28→16:28)
[2021-11-22] MEDS ORDERED: ZIPRASIDONE MESYLATE 20 MG/VIAL VIAL IM ONE (12:00)
--- NOTE | 2021-11-22 12:19 | NUR ---
GPS RN NOTES PATIENT YELLING LOUDLY, REFUSING ORAL MEDICATIONS. ONE TIME DOSE OF GEODON 3 MG IM ADMINISTERED ORDERED. WILL CONTINUE TO MONITOR FOR S/S PSYCHOSIS.
[2021-11-22 16:00] VITALS: BP 113/69
--- NOTE | 2021-11-22 16:30 | NUR ---
GPS RN NOTES PATIENT WITH ANXIETY AND YELLING, PRN SEROQUEL 12.5 MG TAB PO ADMINISTERED ORDERED. WILL CONTINUE TO MONITOR FOR S/S ANXIETY.
[2021-11-22 21:23] VITALS: BP 124/77
[2021-11-22] MEDS: MIRTAZAPINE 15 MG TABLET PO SCH (22:01)
[2021-11-22] MEDS: QUETIAPINE FUMARATE 25 MG TABLET PO SCH (22:01)
[2021-11-22] MEDS: ATORVASTATIN 40 MG TABLET PO SCH (22:02)
[2021-11-23] MEDS: ZOLPIDEM TARTRATE 5 MG TABLET PO PRN (00:38)
[2021-11-23 08:00] VITALS: BP 111/62
[2021-11-23] MEDS: OXCARBAZEPINE 150 MG TABLET PO SCH ×2 (08:55→16:55)
[2021-11-23] MEDS: AMLODIPINE BESYLATE 5 MG TABLET PO SCH (08:55)
[2021-11-23] MEDS: GEMFIBROZIL 600 MG TABLET PO SCH ×2 (08:55→16:55)
[2021-11-23] MEDS: MULTIVIT W/MINERALS 1 TAB TABLET PO SCH (08:55)
[2021-11-23] MEDS: LIPASE/PROTEASE/AMYLASE 1 EACH CAPSULE.DR PO SCH ×3 (08:55→17:14)
[2021-11-23] MEDS: ASPIRIN 81 MG TAB.CHEW PO SCH (08:55)
[2021-11-23] MEDS: MONTELUKAST SODIUM (10MG) 10 MG TABLET PO SCH (08:55)
[2021-11-23] MEDS: SULFAMETH/TRIMETH 800/160 MG 1 UDTAB TABLET PO SCH ×2 (08:56→21:52)
[2021-11-23] MEDS: CHOLECALCIFEROL 1,000 UNIT TABLET (VIT D3) PO SCH (08:56)
[2021-11-23] MEDS: CARVEDILOL 3.125 MG TABLET PO SCH ×2 (08:58→16:56)
[2021-11-23] MEDS: cetrizine 10 MG TABLET PO SCH (08:58)
[2021-11-23] MEDS: PANTOPRAZOLE 40 MG TABLET.DR PO SCH (08:58)
[2021-11-23] MEDS: APIXABAN 2.5 MG TABLET PO SCH ×2 (08:58→16:56)
[2021-11-23] MEDS: ENSURE ENLIVE 237 ML LIQUID (VANILLA) PO SCH ×3 (08:59→16:57)
[2021-11-23] MEDS: Z GUARD REMEDY 4 OZ OINT TP SCH (08:59)
[2021-11-23 16:00] VITALS: BP 114/61
[2021-11-23 21:04] VITALS: BP 97/41
[2021-11-23 21:30] VITALS: BP 109/57
[2021-11-23] MEDS: ATORVASTATIN 40 MG TABLET PO SCH (21:52)
[2021-11-23] MEDS: QUETIAPINE FUMARATE 25 MG TABLET PO SCH (21:57)
[2021-11-23] MEDS: MIRTAZAPINE 15 MG TABLET PO SCH (22:56)
[2021-11-24 08:00] VITALS: BP 114/60
[2021-11-24] MEDS: APIXABAN 2.5 MG TABLET PO SCH ×2 (08:45→17:16)
[2021-11-24] MEDS: GEMFIBROZIL 600 MG TABLET PO SCH ×2 (08:45→17:15)
[2021-11-24] MEDS: LIPASE/PROTEASE/AMYLASE 1 EACH CAPSULE.DR PO SCH ×3 (08:45→17:15)
[2021-11-24] MEDS: ASPIRIN 81 MG TAB.CHEW PO SCH (08:45)
[2021-11-24] MEDS: Z GUARD REMEDY 4 OZ OINT TP SCH (08:46)
[2021-11-24] MEDS: OXCARBAZEPINE 150 MG TABLET PO SCH ×2 (08:46→15:16)
[2021-11-24] MEDS: cetrizine 10 MG TABLET PO SCH (08:46)
[2021-11-24] MEDS: CHOLECALCIFEROL 1,000 UNIT TABLET (VIT D3) PO SCH (08:46)
[2021-11-24] MEDS: SULFAMETH/TRIMETH 800/160 MG 1 UDTAB TABLET PO SCH ×2 (08:46→21:16)
[2021-11-24] MEDS: MONTELUKAST SODIUM (10MG) 10 MG TABLET PO SCH (08:46)
[2021-11-24] MEDS: MULTIVIT W/MINERALS 1 TAB TABLET PO SCH (08:46)
[2021-11-24] MEDS: ENSURE ENLIVE 237 ML LIQUID (VANILLA) PO SCH ×3 (08:47→17:16)
[2021-11-24] MEDS: CARVEDILOL 3.125 MG TABLET PO SCH ×2 (08:47→17:00)
[2021-11-24] MEDS: AMLODIPINE BESYLATE 5 MG TABLET PO SCH (08:47)
[2021-11-24] MEDS: PANTOPRAZOLE 40 MG TABLET.DR PO SCH (08:48)
[2021-11-24 16:00] VITALS: BP 108/56
[2021-11-24 20:15] VITALS: BP 106/53
[2021-11-24 20:40] VITALS: BP 106/53
[2021-11-24] MEDS: QUETIAPINE FUMARATE 25 MG TABLET PO SCH (21:16)
[2021-11-24] MEDS: ATORVASTATIN 40 MG TABLET PO SCH (22:19)
[2021-11-24] MEDS: MIRTAZAPINE 15 MG TABLET PO SCH (22:19)
[2021-11-25] MEDS: Z GUARD REMEDY 4 OZ OINT TP PRN (03:19)
[2021-11-25] MEDS: PANTOPRAZOLE 40 MG TABLET.DR PO SCH (07:54)
[2021-11-25 08:00] VITALS: BP 126/53
[2021-11-25] MEDS: cetrizine 10 MG TABLET PO SCH (08:43)
[2021-11-25] MEDS: OXCARBAZEPINE 150 MG TABLET PO SCH ×3 (08:43→22:06)
[2021-11-25] MEDS: ASPIRIN 81 MG TAB.CHEW PO SCH (08:43)
[2021-11-25] MEDS: LIPASE/PROTEASE/AMYLASE 1 EACH CAPSULE.DR PO SCH ×3 (08:43→17:01)
[2021-11-25] MEDS: MONTELUKAST SODIUM (10MG) 10 MG TABLET PO SCH (08:44)
[2021-11-25] MEDS: AMLODIPINE BESYLATE 5 MG TABLET PO SCH (08:44)
[2021-11-25] MEDS: CHOLECALCIFEROL 1,000 UNIT TABLET (VIT D3) PO SCH (08:44)
[2021-11-25] MEDS: MULTIVIT W/MINERALS 1 TAB TABLET PO SCH (08:44)
[2021-11-25] MEDS: GEMFIBROZIL 600 MG TABLET PO SCH ×2 (08:44→16:54)
[2021-11-25] MEDS: CARVEDILOL 3.125 MG TABLET PO SCH ×2 (08:44→16:50)
[2021-11-25] MEDS: SULFAMETH/TRIMETH 800/160 MG 1 UDTAB TABLET PO SCH (08:44)
[2021-11-25] MEDS: APIXABAN 2.5 MG TABLET PO SCH ×2 (08:45→16:50)
[2021-11-25] MEDS: Z GUARD REMEDY 4 OZ OINT TP SCH (08:45)
[2021-11-25] MEDS: ENSURE ENLIVE 237 ML LIQUID (VANILLA) PO SCH ×3 (08:52→16:50)
--- NOTE | 2021-11-25 09:00 | NUR ---
RN NOTE- PATIENT RESTING ON BED AND A/O X1. APPEARS DEPRESSED, LABILE, BLUNTED AFFECT, DISORGANIZED, DISORIENTED, CONFUSED, ANXIOUS, RESTLESS, YELLING, GRABS AT STAFF, BUT IS EASILY RE-DIRECTABLE. POOR INSIGHT, POOR JUDGEMENT, NEEDS FREQUENT REDIRECTION. NO S/S OF DISTRESS, BREATHING WITHOUT DIFFICULY ON ROOM AIR. OFFERED FLUID AND SNACKS TOLERATED. BED IN LOWEST POSITION AND LOCKED, SIDE RAILS UP X2 FOR SAFETY. WILL CONTINUE TO MONITOR Q15 FOR MOOD, SAFETY AND BEHAVIOR.
[2021-11-25] MEDS: ACETAMINOPHEN 325 MG TABLET PO PRN (09:12)
--- NOTE | 2021-11-25 09:13 | NUR ---
RN NOTE- C/O HEADACHE. TYLENOL 650 MG ADMINISTERED
[2021-11-25 16:00] VITALS: BP 146/75
--- NOTE | 2021-11-25 19:45 | NUR ---
GPS RN OPENING NOTES: RECEIVED PATIENT LAYING IN BED. A/O X1. APPEARS DEPRESSED, BLUNTED AFFECT, LABILE, DISORGANIZED, DISORIENTED, CONFUSED, RESTLESS, ANXIOUS, POOR INSIGHT, POOR JUDGEMENT. PATIENT HAS NO S/S OF DISTRESS. RESPIRATION EVEN AND UNLABORED WITH EQUAL RISE AND FALL OF THE CHEST, ON ROOM AIR. OFFERED FLUID AND SNACKS TOLERATED. BED IN LOWEST POSITION AND LOCKED, SIDE RAILS UP X2 FOR SAFETY. WILL CONTINUE TO MONITOR Q15 FOR MOOD, SAFETY AND BEHAVIOR.
[2021-11-25 20:57] VITALS: BP 110/78
[2021-11-25] MEDS: QUETIAPINE FUMARATE 25 MG TABLET PO SCH (22:05)
[2021-11-25] MEDS: MIRTAZAPINE 15 MG TABLET PO SCH (22:06)
[2021-11-25] MEDS: ATORVASTATIN 40 MG TABLET PO SCH (22:06)
--- NOTE | 2021-11-25 22:10 | NUR ---
GPS RN NOTES: REMERON 7.5MG WASTED PER PARTIAL DOSE ORDER
[2021-11-25] MEDS: ZOLPIDEM TARTRATE 5 MG TABLET PO PRN (22:52)
--- NOTE | 2021-11-25 22:53 | NUR ---
GPS RN NOTES: AMBIEN 5MG GIVEN PO AT 2252 FOR INSOMNIA. WILL CONTINUE TO MONITOR.
--- NOTE | 2021-11-26 07:29 | NUR ---
GPS RN CLOSING NOTES: PATIENT IS LAYING IN BED, AWAKE, A/O X1. PATIENT PATIENT SLEPT 6HR THIS SHIFT. PATIENT HAS NO S/S OF DISTRESS AT THIS TIME. RESPIRATION EVEN AND UNLABORED WITH EQUAL RISE AND FALL OF THE CHEST ON ROOM AIR. ALL PATIENT CARE NEEDS HAVE BEEN MET ANTICIPATED. WILL CONTINUE TO MONITOR AND ENDORSE TO AM SHIFT.
--- NOTE | 2021-11-26 07:30 | NUR ---
RN OPENING NOTE PATIENT IN BED ASLEEP BUT EASILY AROUSABLE, ON ROOM AIR, BREATHING UNLABORED AND NOT IN ANY FORM OF DISTRESS. ALL SAFETY PRECAUTIONS IN PLACE. WILL CONTINUE TO MONITOR.
[2021-11-26 08:00] VITALS: BP 123/60
[2021-11-26] MEDS: AMLODIPINE BESYLATE 5 MG TABLET PO SCH (09:13)
[2021-11-26] MEDS: MONTELUKAST SODIUM (10MG) 10 MG TABLET PO SCH (09:14)
[2021-11-26] MEDS: CHOLECALCIFEROL 1,000 UNIT TABLET (VIT D3) PO SCH (09:14)
[2021-11-26] MEDS: OXCARBAZEPINE 150 MG TABLET PO SCH ×3 (09:14→21:45)
[2021-11-26] MEDS: cetrizine 10 MG TABLET PO SCH (09:14)
[2021-11-26] MEDS: PANTOPRAZOLE 40 MG TABLET.DR PO SCH (09:14)
[2021-11-26] MEDS: LIPASE/PROTEASE/AMYLASE 1 EACH CAPSULE.DR PO SCH ×3 (09:14→17:03)
[2021-11-26] MEDS: GEMFIBROZIL 600 MG TABLET PO SCH ×2 (09:14→16:26)
[2021-11-26] MEDS: Z GUARD REMEDY 4 OZ OINT TP SCH (09:15)
[2021-11-26] MEDS: ASPIRIN 81 MG TAB.CHEW PO SCH (09:15)
[2021-11-26] MEDS: CARVEDILOL 3.125 MG TABLET PO SCH ×2 (09:15→16:26)
[2021-11-26] MEDS: APIXABAN 2.5 MG TABLET PO SCH ×2 (09:19→16:34)
[2021-11-26] MEDS: ENSURE ENLIVE 237 ML LIQUID (VANILLA) PO SCH ×3 (09:44→16:34)
[2021-11-26] MEDS: MULTIVIT W/MINERALS 1 TAB TABLET PO SCH (09:45)
--- NOTE | 2021-11-26 11:22 | NUR ---
Court Notification: SW contacted pt's son Jens ([phone]) and was unable to leave a voicemail.
--- NOTE | 2021-11-26 11:23 | NUR ---
Court Hearing: Patient's court hearing for 8820 was today and it was upheld for GD.
--- NOTE | 2021-11-26 15:07 | NUR ---
SNF CONTACT: SW received a call from [facility] ([phone]) from [facility] who stated pt is accepted.
--- NOTE | 2021-11-26 15:08 | NUR ---
VIJAY Family Contact: VIJAY spoke with patient's son Jens ([phone]) and discussed treatment/discharge plan. VIJAY expressed that [facility] is unable to accept pt back. VIJAY expressed that [facility] accepted. He was agreeable of this.
[2021-11-26 16:00] VITALS: BP 102/54
--- NOTE | 2021-11-26 18:53 | NUR ---
RN CLOSING NOTE PATIENT REMAINED STABLE THROUGHOUT SHIFT. OF THIS TIME, PATIENT IS ASLEEP BUT EASILY AROUSABLE, ALERT AND ORIENTED X 1. PATIENT IS COMPLIANT TO MEDICATION REGIMEN. BREATHING UNLABORED AND NOT IN ANY FORM OF DISTRESS. ALL HOSPITAL SAFETY PRECAUTIONS IN PLACE. WILL ENDORSE TO DATA MIGRATION CONSULTANT NURSE.
--- NOTE | 2021-11-26 19:41 | NUR ---
GPS RN OPENING NOTES: RECEIVED PATIENT SLEEPING IN BED, PATIENT AROUSED EASILY. PATIENT IS A/O X1, BLUNTED AFFECT, DISORGANIZED, DISORIENTED, CONFUSED, UNABLE TO GIVE APPROPRIATE ANSWERS TO QUESTION, PASSIVE, WITHDRAWN, POOR INSIGHT, POOR JUDGEMENT. NO S/S OF DISTRESS. RESPIRATION EVEN AND UNLABORED WITH EQUAL RISE AND FALL OF THE CHEST, ON ROOM AIR. OFFERED FLUID AND SNACKS TOLERATED. BED IN LOWEST POSITION AND LOCKED, SIDE RAILS UP X2 FOR SAFETY. WILL CONTINUE TO MONITOR Q15 FOR MOOD, SAFETY AND BEHAVIOR.
[2021-11-26 20:12] VITALS: BP 115/59
[2021-11-26] MEDS: QUETIAPINE FUMARATE 25 MG TABLET PO SCH (21:45)
[2021-11-26] MEDS: ACETAMINOPHEN 325 MG TABLET PO PRN (21:50)
--- NOTE | 2021-11-26 21:51 | NUR ---
GPS RN NOTES: PATIENT C/O GENERALIZED BODY PAIN. TYLENOL 560MG GIVEN PO AT 2150. WILL CONTINUE TO MONITOR.
[2021-11-26] MEDS: MIRTAZAPINE 15 MG TABLET PO SCH (22:36)
[2021-11-26] MEDS: ATORVASTATIN 40 MG TABLET PO SCH (22:36)
[2021-11-26] MEDS: ZOLPIDEM TARTRATE 5 MG TABLET PO PRN (22:39)
--- NOTE | 2021-11-26 22:42 | NUR ---
GPS RN NOTES: AMBIEN 5MG GIVEN PO AT 2239 FOR INSOMNIA. WILL CONTINUE TO MONITOR.
--- NOTE | 2021-11-26 22:43 | NUR ---
GPS RN NOTES: REMERON 7.5MG WASTED PER PARTIAL DOSE ORDER
[2021-11-27] MEDS: PANTOPRAZOLE 40 MG TABLET.DR PO SCH (07:59)
[2021-11-27 08:00] VITALS: BP 111/56
[2021-11-27] MEDS: ASPIRIN 81 MG TAB.CHEW PO SCH (08:01)
[2021-11-27] MEDS: LIPASE/PROTEASE/AMYLASE 1 EACH CAPSULE.DR PO SCH ×3 (08:01→17:02)
[2021-11-27] MEDS: OXCARBAZEPINE 150 MG TABLET PO SCH ×3 (08:01→21:36)
[2021-11-27] MEDS: MULTIVIT W/MINERALS 1 TAB TABLET PO SCH (08:01)
[2021-11-27] MEDS: GEMFIBROZIL 600 MG TABLET PO SCH ×2 (08:01→17:02)
[2021-11-27] MEDS: cetrizine 10 MG TABLET PO SCH (08:02)
[2021-11-27] MEDS: AMLODIPINE BESYLATE 5 MG TABLET PO SCH (08:02)
[2021-11-27] MEDS: MONTELUKAST SODIUM (10MG) 10 MG TABLET PO SCH (08:02)
[2021-11-27] MEDS: CHOLECALCIFEROL 1,000 UNIT TABLET (VIT D3) PO SCH (08:02)
[2021-11-27] MEDS: CARVEDILOL 3.125 MG TABLET PO SCH ×2 (08:03→17:00)
[2021-11-27] MEDS: APIXABAN 2.5 MG TABLET PO SCH ×2 (08:04→17:04)
[2021-11-27] MEDS: ENSURE ENLIVE 237 ML LIQUID (VANILLA) PO SCH ×3 (08:05→17:03)
[2021-11-27] MEDS: Z GUARD REMEDY 4 OZ OINT TP SCH (08:06)
[2021-11-27 16:00] VITALS: BP 114/58
--- NOTE | 2021-11-27 17:46 | NUR ---
RN-NOTES PATIENT IN BED INTERMITTENTLY SLEEPING WITH BREATHING EVEN AND NONLABORED EASILY AROUSED,A/O X1 GUARDED,NO ACUTE DISTRESS NOTED. COMPLIANT WITH MEDICATIONS. NEEDS MAXIMUM ASSIST WITH ADL'S. GOOD GADIEL CARE RENDERED. ALL NEEDS ATTENDED AND ANTICIPATED. WILL CONT. MONITORING FOR SAFETY AND BEHAVIOR. WILL ENDORSE TO INCOMING NURSE FOR CONTINUITY OF CARE.
--- NOTE | 2021-11-27 19:44 | NUR ---
GPS RN OPENING NOTES: RECEIVED PATIENT LAYING IN BED, AWAKE, A/O X1. APPEARS DEPRESSED, BLUNTED AFFECT, LABILE, DISORGANIZED, DISORIENTED, CONFUSED, RESTLESS, ANXIOUS, POOR INSIGHT, POOR JUDGEMENT. PATIENT CONDITION REMAINS THE SAME. PATIENT HAS NO S/S OF DISTRESS. RESPIRATION EVEN AND UNLABORED WITH EQUAL RISE AND FALL OF THE CHEST, ON ROOM AIR. OFFERED FLUID AND SNACKS TOLERATED. BED IN LOWEST POSITION AND LOCKED, SIDE RAILS UP X2 FOR SAFETY. WILL CONTINUE TO MONITOR Q15 FOR MOOD, SAFETY AND BEHAVIOR.
[2021-11-27 20:00] VITALS: BP 126/71
[2021-11-27] MEDS: QUETIAPINE FUMARATE 25 MG TABLET PO SCH (21:36)
[2021-11-27] MEDS: ATORVASTATIN 40 MG TABLET PO SCH (21:36)
[2021-11-27] MEDS: MIRTAZAPINE 15 MG TABLET PO SCH (21:37)
[2021-11-28 08:00] VITALS: BP 122/68
[2021-11-28] MEDS: GEMFIBROZIL 600 MG TABLET PO SCH ×2 (09:00→17:37)
[2021-11-28] MEDS: Z GUARD REMEDY 4 OZ OINT TP SCH (09:00)
[2021-11-28] MEDS: ENSURE ENLIVE 237 ML LIQUID (VANILLA) PO SCH ×3 (09:00→17:38)
[2021-11-28] MEDS: ASPIRIN 81 MG TAB.CHEW PO SCH (10:59)
[2021-11-28] MEDS: OXCARBAZEPINE 150 MG TABLET PO SCH ×3 (10:59→21:53)
[2021-11-28] MEDS: AMLODIPINE BESYLATE 5 MG TABLET PO SCH (11:00)
[2021-11-28] MEDS: CHOLECALCIFEROL 1,000 UNIT TABLET (VIT D3) PO SCH (11:00)
[2021-11-28] MEDS: MULTIVIT W/MINERALS 1 TAB TABLET PO SCH (11:13)
[2021-11-28] MEDS: PANTOPRAZOLE 40 MG TABLET.DR PO SCH (11:13)
[2021-11-28] MEDS: CARVEDILOL 3.125 MG TABLET PO SCH ×2 (11:14→17:37)
[2021-11-28] MEDS: cetrizine 10 MG TABLET PO SCH (11:14)
[2021-11-28] MEDS: MONTELUKAST SODIUM (10MG) 10 MG TABLET PO SCH (11:14)
[2021-11-28] MEDS: APIXABAN 2.5 MG TABLET PO SCH ×2 (11:15→17:38)
[2021-11-28] MEDS: LIPASE/PROTEASE/AMYLASE 1 EACH CAPSULE.DR PO SCH ×3 (11:17→17:49)
[2021-11-28 16:00] VITALS: BP 115/60
[2021-11-28 20:00] VITALS: BP 109/59
[2021-11-28] MEDS: ATORVASTATIN 40 MG TABLET PO SCH (21:52)
[2021-11-28] MEDS: QUETIAPINE FUMARATE 25 MG TABLET PO SCH (21:52)
[2021-11-28] MEDS: MIRTAZAPINE 15 MG TABLET PO SCH (21:52)
[2021-11-28] MEDS: ZOLPIDEM TARTRATE 5 MG TABLET PO PRN (23:55)
--- NOTE | 2021-11-29 07:36 | NUR ---
RN NOTES PT SITTING IN BED, AWAKE, NO SIGN OF PAIN OR ANY DISCOMFORT, CALM AT THIS TIME, KEPT COMFORTABLE.
[2021-11-29 08:00] VITALS: BP_SYST 121; BP_SYST 141; BP_DIAS 68
[2021-11-29] MEDS: GEMFIBROZIL 600 MG TABLET PO SCH ×2 (09:28→16:56)
[2021-11-29] MEDS: APIXABAN 2.5 MG TABLET PO SCH ×2 (09:28→16:56)
[2021-11-29] MEDS: ASPIRIN 81 MG TAB.CHEW PO SCH (09:28)
[2021-11-29] MEDS: MONTELUKAST SODIUM (10MG) 10 MG TABLET PO SCH (09:28)
[2021-11-29] MEDS: PANTOPRAZOLE 40 MG TABLET.DR PO SCH (09:29)
[2021-11-29] MEDS: MULTIVIT W/MINERALS 1 TAB TABLET PO SCH (09:29)
[2021-11-29] MEDS: LIPASE/PROTEASE/AMYLASE 1 EACH CAPSULE.DR PO SCH ×3 (09:29→17:22)
[2021-11-29] MEDS: cetrizine 10 MG TABLET PO SCH (09:29)
[2021-11-29] MEDS: CHOLECALCIFEROL 1,000 UNIT TABLET (VIT D3) PO SCH (09:29)
[2021-11-29] MEDS: CARVEDILOL 3.125 MG TABLET PO SCH ×2 (09:29→16:57)
[2021-11-29] MEDS: AMLODIPINE BESYLATE 5 MG TABLET PO SCH (09:29)
[2021-11-29] MEDS: ENSURE ENLIVE 237 ML LIQUID (VANILLA) PO SCH ×3 (09:30→16:55)
[2021-11-29] MEDS: Z GUARD REMEDY 4 OZ OINT TP SCH (09:32)
[2021-11-29] MEDS: OXCARBAZEPINE 150 MG TABLET PO SCH ×3 (09:32→21:42)
[2021-11-29 16:00] VITALS: BP 122/80
--- NOTE | 2021-11-29 18:22 | NUR ---
RN NOTES PT IN BED, AWAKE, ALERT TO SELF, WITH CONFUSION, ASSISTED WITH DINNER, PM MEDS GIVEN ORDERED, PM CARE RENDERED, SAFETY PRECAUTIONS OBSERVED, KEPT BED AT ITS LOWEST POSITION, ALL NEEDS ATTENDED.
--- NOTE | 2021-11-29 19:15 | NUR ---
GPS RN NOTES PATIENT IN HER ROOM RESTING IN BED COMFORTABLY. A/OX1, NO S/SX OF ACUTE DISTRESS NOTED. PATIENT REMAINS CONFUSED, DISORGANIZED, YELLING/SCREAMING INTERMITTENTLY. WITHDRAWN, PT REQUIRES MAXIMUM ASSISTANCE IN ADL'S. TURN AND REPOSITION PER PROTOCOL.SAFETY PRECAUTIONS IN PLACE. WILL CONTINUE TO MONITOR Q15MIN ROUNDS FOR SAFETY AND BEHAVIOR.
[2021-11-29 21:06] VITALS: BP 103/60
[2021-11-29] MEDS: QUETIAPINE FUMARATE 25 MG TABLET PO SCH (21:42)
[2021-11-29] MEDS: ATORVASTATIN 40 MG TABLET PO SCH (21:43)
[2021-11-29] MEDS: MIRTAZAPINE 15 MG TABLET PO SCH (21:43)
[2021-11-30] MEDS: ZOLPIDEM TARTRATE 5 MG TABLET PO PRN (00:15)
[2021-11-30] MEDS: PANTOPRAZOLE 40 MG TABLET.DR PO SCH (07:53)
[2021-11-30 08:00] VITALS: BP 113/64
[2021-11-30] MEDS: LIPASE/PROTEASE/AMYLASE 1 EACH CAPSULE.DR PO SCH ×3 (08:00→17:02)
[2021-11-30] MEDS: OXCARBAZEPINE 150 MG TABLET PO SCH ×3 (08:00→21:45)
[2021-11-30] MEDS: AMLODIPINE BESYLATE 5 MG TABLET PO SCH (08:01)
[2021-11-30] MEDS: MONTELUKAST SODIUM (10MG) 10 MG TABLET PO SCH (08:01)
[2021-11-30] MEDS: cetrizine 10 MG TABLET PO SCH (08:01)
[2021-11-30] MEDS: MULTIVIT W/MINERALS 1 TAB TABLET PO SCH (08:01)
[2021-11-30] MEDS: GEMFIBROZIL 600 MG TABLET PO SCH ×2 (08:01→16:53)
[2021-11-30] MEDS: CHOLECALCIFEROL 1,000 UNIT TABLET (VIT D3) PO SCH (08:01)
[2021-11-30] MEDS: APIXABAN 2.5 MG TABLET PO SCH ×2 (08:04→16:55)
[2021-11-30] MEDS: CARVEDILOL 3.125 MG TABLET PO SCH ×2 (08:05→16:55)
[2021-11-30] MEDS: ENSURE ENLIVE 237 ML LIQUID (VANILLA) PO SCH ×3 (08:06→17:01)
[2021-11-30] MEDS: ASPIRIN 81 MG TAB.CHEW PO SCH (08:06)
[2021-11-30] MEDS: Z GUARD REMEDY 4 OZ OINT TP SCH (08:06)
[2021-11-30 16:00] VITALS: BP 100/60
--- NOTE | 2021-11-30 17:34 | NUR ---
RN-NOTES PATIENT IN BED AWAKE,A/O X1 GUARDED,NO ACUTE DISTRESS NOTED.COMPLIANT WITH MEDICATIONS. NEEDS MAXIMUM ASSIST WITH ADL'S. GOOD GADIEL CARE RENDERED. ENCOURAGED AND HELP REPOSITIONED Q 2HRS. ALL NEEDS ATTENDED AND ANTICIPATED. WILL CONT. MONITORING FOR SAFETY AND BEHAVIOR.WILL ENDORSE TO INCOMING NURSE FOR CONTINUITY OF CARE.
--- NOTE | 2021-11-30 19:30 | NUR ---
GPS RN NOTE, RECEIVED PATIENT AWAKE AND IN BED, NO S/S OR COMPLAINTS OF PAIN AT THIS TIME. PATIENT IS DISPLAYING NO S/S OF APPARENT DISTRESS AT THIS TIME. PATIENT BREATHING IS UNLABORED WITH EQUAL RISE AND FALL OF THE CHEST. PATIENT IS ALERT AND ORIENTED X 1 ON ROOM AIR WITH A SPO2 98%. PATIENT IS COMPLAINT WITH MEDICATIONS, CONFUSED, EASILY IRRITABLE, YELLING AT TIMES, AND COOPERATIVE. PATIENT DENIES SUICIDAL AND HOMICIDAL IDEATIONS AT THIS TIME. PATIENT ASSISTED WITH TURNING AND REPOSITIONING Q2HR AND PRN FOR COMFORT AND CIRCULATION. PATIENT HAS NO NEEDS AT THIS TIME. PATIENT EDUCATED ON THE USE OF THE CALL PERERA. PATIENT BED SIDE RAILS UP X 2 FOR SAFETY. PATIENT BED IS LOCKED, LOW, WITH BED ALARM ON. WILL CONTINUE TO MONITOR THIS PATIENT Q15 MINUTES WITH THE HELP OF STAFF TO MAINTAIN SAFETY.
[2021-11-30 20:45] VITALS: BP 119/62
[2021-11-30] MEDS: MIRTAZAPINE 15 MG TABLET PO SCH (21:46)
[2021-11-30] MEDS: ATORVASTATIN 40 MG TABLET PO SCH (21:46)
[2021-11-30] MEDS: QUETIAPINE FUMARATE 25 MG TABLET PO SCH (21:46)
[2021-12-01] MEDS: PANTOPRAZOLE 40 MG TABLET.DR PO SCH (07:49)
[2021-12-01 08:00] VITALS: BP 117/58
[2021-12-01] MEDS: GEMFIBROZIL 600 MG TABLET PO SCH ×2 (08:43→17:05)
[2021-12-01] MEDS: MONTELUKAST SODIUM (10MG) 10 MG TABLET PO SCH (08:43)
[2021-12-01] MEDS: MULTIVIT W/MINERALS 1 TAB TABLET PO SCH (08:43)
[2021-12-01] MEDS: LIPASE/PROTEASE/AMYLASE 1 EACH CAPSULE.DR PO SCH ×3 (08:43→17:05)
[2021-12-01] MEDS: ASPIRIN 81 MG TAB.CHEW PO SCH (08:44)
[2021-12-01] MEDS: cetrizine 10 MG TABLET PO SCH (08:44)
[2021-12-01] MEDS: AMLODIPINE BESYLATE 5 MG TABLET PO SCH (08:44)
[2021-12-01] MEDS: CHOLECALCIFEROL 1,000 UNIT TABLET (VIT D3) PO SCH (08:44)
[2021-12-01] MEDS: CARVEDILOL 3.125 MG TABLET PO SCH ×2 (08:45→17:06)
[2021-12-01] MEDS: APIXABAN 2.5 MG TABLET PO SCH ×2 (08:46→17:07)
[2021-12-01] MEDS: ENSURE ENLIVE 237 ML LIQUID (VANILLA) PO SCH ×3 (08:46→17:06)
[2021-12-01] MEDS: OXCARBAZEPINE 150 MG TABLET PO SCH ×3 (08:49→20:59)
[2021-12-01] MEDS: Z GUARD REMEDY 4 OZ OINT TP SCH (09:39)
[2021-12-01 16:00] VITALS: BP 107/51
--- NOTE | 2021-12-01 17:56 | NUR ---
RN NOTES PATIENT SPITS OUT HALF OF THE 1700 MEDICATIONS. SHE TOOK HALF OF THE CRUSHED MEDICATIONS. PATIENT STATED " IT IS TOO SPICY , AND SHE SPITS UP HALF OF THE MEDICATIONS.
--- NOTE | 2021-12-01 19:15 | NUR ---
GPS RN NOTES PATIENT IN HER ROOM RESTING IN BED COMFORTABLY. A/OX1, NO S/SX OF ACUTE DISTRESS NOTED. PATIENT REMAINS CONFUSED, DISORGANIZED, PT REQUIRES MAXIMUM ASSISTANCE IN ADL'S. TURN AND REPOSITION PER PROTOCOL.SAFETY PRECAUTIONS IN PLACE. WILL CONTINUE TO MONITOR Q15MIN ROUNDS FOR SAFETY AND BEHAVIOR.
[2021-12-01 20:11] VITALS: BP 130/66
[2021-12-01] MEDS: QUETIAPINE FUMARATE 25 MG TABLET PO SCH (20:59)
[2021-12-01] MEDS: ATORVASTATIN 40 MG TABLET PO SCH (21:04)
[2021-12-01] MEDS: MIRTAZAPINE 15 MG TABLET PO SCH (21:04)
[2021-12-02] MEDS: ZOLPIDEM TARTRATE 5 MG TABLET PO PRN (01:44)
[2021-12-02] MEDS: PANTOPRAZOLE 40 MG TABLET.DR PO SCH (07:36)
[2021-12-02 08:00] VITALS: BP 123/65
--- NOTE | 2021-12-02 08:01 | NUR ---
Discharge Note: Patient will be discharged to a locked fdc facility to [facility] [address] [place] [address]; ([phone]). Please arrange ambulance transportation. Steam Cleaning Machine Operator spoke with Renetta, Cardiac Cath Rn at [facility]; ([phone]), who stated patient will be accepted at facility today. Patient is alert and oriented x1. Patient denies any suicidal or homicidal ideations. Patient is aware and agreeable with discharge plans. Patients so Jens ([phone]). Patient will continue to follow-up with her (Psychiatrist) Dr. Mccarthy [address] [place] [address]; ([phone]) and Fixed Income Director Dr. Spencer [address], [place] [address]; ([phone]). Patient presents with euthymic mood and congruent affect. Addendum: 12/02/21 at 0840 by VIJAY QUIJANO Discharge canceled due pt yelling and screaming. Dr. Shari senaceled dc.
--- NOTE | 2021-12-02 08:15 | NUR ---
Patient yelling and screaming "I want to ,I want to ", notified and discharge canceled .
[2021-12-02] MEDS: APIXABAN 2.5 MG TABLET PO SCH ×2 (08:23→17:22)
[2021-12-02] MEDS: LIPASE/PROTEASE/AMYLASE 1 EACH CAPSULE.DR PO SCH ×3 (08:23→18:12)
[2021-12-02] MEDS: GEMFIBROZIL 600 MG TABLET PO SCH ×2 (08:23→17:24)
[2021-12-02] MEDS: ASPIRIN 81 MG TAB.CHEW PO SCH (08:24)
[2021-12-02] MEDS: cetrizine 10 MG TABLET PO SCH (08:24)
[2021-12-02] MEDS: AMLODIPINE BESYLATE 5 MG TABLET PO SCH (08:24)
[2021-12-02] MEDS: OXCARBAZEPINE 150 MG TABLET PO SCH ×3 (08:25→20:38)
[2021-12-02] MEDS: MULTIVIT W/MINERALS 1 TAB TABLET PO SCH (08:25)
[2021-12-02] MEDS: CHOLECALCIFEROL 1,000 UNIT TABLET (VIT D3) PO SCH (08:26)
[2021-12-02] MEDS: QUETIAPINE FUMARATE 25 MG TABLET PO PRN ×2 (08:26→18:26)
[2021-12-02] MEDS: MONTELUKAST SODIUM (10MG) 10 MG TABLET PO SCH (08:26)
[2021-12-02] MEDS: CARVEDILOL 3.125 MG TABLET PO SCH ×2 (08:27→17:24)
[2021-12-02] MEDS: Z GUARD REMEDY 4 OZ OINT TP SCH (09:00)
[2021-12-02] MEDS: ENSURE ENLIVE 237 ML LIQUID (VANILLA) PO SCH ×3 (09:00→17:21)
--- NOTE | 2021-12-02 09:00 | NUR ---
PT medicated with Seroquel 12.5mg po x1.
[2021-12-02 16:00] VITALS: BP 147/73
--- NOTE | 2021-12-02 18:30 | NUR ---
NURSE NOTE: PT YELLING, BEING DISRUPTIVE. SEROQUEL 12.5 MG PRN ADM ORDERED. PT TOLERATED WELL. WILL CONT TO MONITOR.
[2021-12-02 20:08] VITALS: BP 120/63
[2021-12-02] MEDS: QUETIAPINE FUMARATE 25 MG TABLET PO SCH (20:39)
[2021-12-02] MEDS: MIRTAZAPINE 15 MG TABLET PO SCH (21:05)
[2021-12-02] MEDS: ATORVASTATIN 40 MG TABLET PO SCH (21:10)
[2021-12-03 06:37] LABS: BASOPHILS % (AUTO) 0.6 % (0.0-2.0); EOSINOPHILS % (AUTO) 4.7 % (0.0-6.0); HEMATOCRIT 34 % (33-45); HEMOGLOBIN 11.2 g/dL (11.5-14.8); MEAN CORPUSCULAR HGB CONC 33 g/dl (31.0-36.0); MEAN CORPUSCULAR VOLUME 96 fL (82-100); MONOCYTES # (AUTO) 0.6 K/uL (0.1-1.30); MONOCYTES % (AUTO) 9.9 % (2.0-12.0); NEUTROPHILS % (AUTO) 50.8 % (43.0-81.0); PLATELET COUNT (AUTO) 155 K/uL (150-450); RED BLOOD CELL COUNT(AUTO) 3.53 MIL/uL (4.0-5.2); WHITE BLOOD COUNT (AUTO) 5.9 K/uL (4.3-11.0)
[2021-12-03 08:00] VITALS: BP 128/90
[2021-12-03] MEDS: LIPASE/PROTEASE/AMYLASE 1 EACH CAPSULE.DR PO SCH ×3 (08:19→17:44)
[2021-12-03] MEDS: PANTOPRAZOLE 40 MG TABLET.DR PO SCH (08:19)
[2021-12-03] MEDS: MONTELUKAST SODIUM (10MG) 10 MG TABLET PO SCH (08:54)
[2021-12-03] MEDS: CARVEDILOL 3.125 MG TABLET PO SCH ×2 (08:55→17:46)
[2021-12-03] MEDS: OXCARBAZEPINE 150 MG TABLET PO SCH ×4 (08:55→20:31)
[2021-12-03] MEDS: CHOLECALCIFEROL 1,000 UNIT TABLET (VIT D3) PO SCH (08:55)
[2021-12-03] MEDS: GEMFIBROZIL 600 MG TABLET PO SCH ×2 (08:55→17:43)
[2021-12-03] MEDS: AMLODIPINE BESYLATE 5 MG TABLET PO SCH (08:55)
[2021-12-03] MEDS: cetrizine 10 MG TABLET PO SCH (08:55)
[2021-12-03] MEDS: ENSURE ENLIVE 237 ML LIQUID (VANILLA) PO SCH ×3 (08:56→17:45)
[2021-12-03] MEDS: MULTIVIT W/MINERALS 1 TAB TABLET PO SCH (08:56)
[2021-12-03] MEDS: ASPIRIN 81 MG TAB.CHEW PO SCH (08:56)
[2021-12-03] MEDS: APIXABAN 2.5 MG TABLET PO SCH ×2 (08:59→17:44)
[2021-12-03] MEDS: Z GUARD REMEDY 4 OZ OINT TP SCH (09:03)
[2021-12-03 16:00] VITALS: BP 122/69
[2021-12-03 20:16] VITALS: BP 117/50
[2021-12-03] MEDS: QUETIAPINE FUMARATE 25 MG TABLET PO SCH (20:31)
[2021-12-03] MEDS: MIRTAZAPINE 15 MG TABLET PO SCH (21:20)
[2021-12-03] MEDS: ATORVASTATIN 40 MG TABLET PO SCH (21:20)
--- NOTE | 2021-12-04 05:04 | NUR ---
RN note. Turned and repositioned patient q2 hours and as needed.
--- NOTE | 2021-12-04 07:30 | NUR ---
RN OPENING NOTE PATIENT IS IN BED ASLEEP, EASILY AROUSABLE, ALERT AND ORIENTED X 1. PATIENT IS ON ROOM AIR, BREATHING UNLABORED AND NOT IN ANY FORM OF DISTRESS. ALL HOSPITAL SAFETY PRECAUTIONS IN PLACE. WILL CONTINUE TO MONITOR.
[2021-12-04 08:00] VITALS: BP 130/68
[2021-12-04] MEDS: PANTOPRAZOLE 40 MG TABLET.DR PO SCH (09:40)
[2021-12-04] MEDS: LIPASE/PROTEASE/AMYLASE 1 EACH CAPSULE.DR PO SCH ×3 (09:40→17:34)
[2021-12-04] MEDS: MULTIVIT W/MINERALS 1 TAB TABLET PO SCH (09:41)
[2021-12-04] MEDS: OXCARBAZEPINE 150 MG TABLET PO SCH ×3 (09:41→21:24)
[2021-12-04] MEDS: CHOLECALCIFEROL 1,000 UNIT TABLET (VIT D3) PO SCH (09:41)
[2021-12-04] MEDS: GEMFIBROZIL 600 MG TABLET PO SCH ×2 (09:41→17:35)
[2021-12-04] MEDS: CARVEDILOL 3.125 MG TABLET PO SCH ×2 (09:41→17:00)
[2021-12-04] MEDS: ASPIRIN 81 MG TAB.CHEW PO SCH (09:42)
[2021-12-04] MEDS: AMLODIPINE BESYLATE 5 MG TABLET PO SCH (09:42)
[2021-12-04] MEDS: cetrizine 10 MG TABLET PO SCH (09:42)
[2021-12-04] MEDS: APIXABAN 2.5 MG TABLET PO SCH ×2 (09:47→17:37)
[2021-12-04] MEDS: Z GUARD REMEDY 4 OZ OINT TP SCH (09:48)
[2021-12-04] MEDS: ENSURE ENLIVE 237 ML LIQUID (VANILLA) PO SCH ×3 (09:48→17:37)
[2021-12-04] MEDS: MONTELUKAST SODIUM (10MG) 10 MG TABLET PO SCH (09:48)
[2021-12-04 16:00] VITALS: BP 108/52
[2021-12-04] MEDS: QUETIAPINE FUMARATE 25 MG TABLET PO PRN ×2 (18:14→18:30)
--- NOTE | 2021-12-04 18:30 | NUR ---
RN NOTE PATIENT IS OBSERVED TO BE RESTLESS, AGITATED, ANXIOUS AND SCREAMS AT STAFF. ATTEMPTED TO GIVE PATIENT SEROQUEL BUT PATIENT WAS TOO AGITATED SHE SPAT AT THE FERRYBOAT DECKHAND, HENCE MEDICINE WAS NOT GIVEN, AND DISCARDED PER HOSPITAL PROTOCOL.
--- NOTE | 2021-12-04 18:41 | NUR ---
RN CLOSING NOTE PATIENT REMAINED STABLE THROUGHOUT SHIFT. PATIENT REMAINED AWAKE MOST OF THE DAY BUT IS STILL OBSERVED TO BE CONFUSED, RESTLESS, AND ANXIOUS. PATIENT IS COMPLIANT WITH MEDICATIONS. ALL HOSPITAL SAFETY PRECAUTIONS IN PLACE. WILL ENDORSE TO REIMBURSEMENT ANALYST NURSE.
[2021-12-04 20:00] VITALS: BP 138/50
[2021-12-04] MEDS: QUETIAPINE FUMARATE 25 MG TABLET PO SCH (21:24)
[2021-12-04] MEDS: ATORVASTATIN 40 MG TABLET PO SCH (21:32)
[2021-12-04] MEDS: MIRTAZAPINE 15 MG TABLET PO SCH (22:02)
[2021-12-05] MEDS: Z GUARD REMEDY 4 OZ OINT TP PRN (05:18)
[2021-12-05 08:00] VITALS: BP 146/67
[2021-12-05] MEDS: ASPIRIN 81 MG TAB.CHEW PO SCH (08:02)
[2021-12-05] MEDS: PANTOPRAZOLE 40 MG TABLET.DR PO SCH (08:02)
[2021-12-05] MEDS: MULTIVIT W/MINERALS 1 TAB TABLET PO SCH (08:03)
[2021-12-05] MEDS: CARVEDILOL 3.125 MG TABLET PO SCH ×2 (08:03→16:44)
[2021-12-05] MEDS: ENSURE ENLIVE 237 ML LIQUID (VANILLA) PO SCH ×3 (08:03→16:49)
[2021-12-05] MEDS: MONTELUKAST SODIUM (10MG) 10 MG TABLET PO SCH (08:04)
[2021-12-05] MEDS: AMLODIPINE BESYLATE 5 MG TABLET PO SCH (08:04)
[2021-12-05] MEDS: cetrizine 10 MG TABLET PO SCH (08:05)
[2021-12-05] MEDS: Z GUARD REMEDY 4 OZ OINT TP SCH (08:05)
[2021-12-05] MEDS: CHOLECALCIFEROL 1,000 UNIT TABLET (VIT D3) PO SCH (08:05)
[2021-12-05] MEDS: OXCARBAZEPINE 150 MG TABLET PO SCH ×3 (08:05→20:19)
[2021-12-05] MEDS: GEMFIBROZIL 600 MG TABLET PO SCH ×2 (08:06→16:46)
[2021-12-05] MEDS: APIXABAN 2.5 MG TABLET PO SCH ×2 (08:15→16:47)
[2021-12-05] MEDS: LIPASE/PROTEASE/AMYLASE 1 EACH CAPSULE.DR PO SCH ×3 (08:33→16:46)
[2021-12-05 16:00] VITALS: BP 105/59
[2021-12-05 20:00] VITALS: BP 118/54
--- NOTE | 2021-12-05 20:04 | NUR ---
[facility] BRASS BURNISHER OPENING NOTE PATIENT IS IN BED AWAKE, ALERT AND ORIENTED X 1. PATIENT IS ON ROOM AIR, BREATHING UNLABORED AND NOT IN ANY FORM OF DISTRESS. ALL HOSPITAL SAFETY PRECAUTIONS IN PLACE. WILL CONTINUE TO MONITOR Q 15 FOR BEHAVIOR, MOOD AND SAFETY.
[2021-12-05] MEDS: QUETIAPINE FUMARATE 25 MG TABLET PO SCH (20:21)
[2021-12-05] MEDS: MIRTAZAPINE 15 MG TABLET PO SCH (21:01)
[2021-12-05] MEDS: ATORVASTATIN 40 MG TABLET PO SCH (21:01)
[2021-12-05] MEDS: ZOLPIDEM TARTRATE 5 MG TABLET PO PRN (23:18)
--- NOTE | 2021-12-05 23:18 | NUR ---
Pt noted awake, with episode of insomnia, PRN Ambien 5 mg as ordered given. Will cont to monitor and anticipate pt's needs.
--- NOTE | 2021-12-06 00:47 | NUR ---
Pt remains awake, continue with nursing interventions, cont to keep pt clean and dry, repositioned, diaper changed.
--- NOTE | 2021-12-06 05:53 | NUR ---
CURB WORKER CLOSING NOTE PATIENT REMAINED STABLE THROUGHOUT SHIFT, NO SIGNIFICANT WAQAR. PATIENT NOTED WITH INTERMITTENT SLEEP & STILL OBSERVED TO BE CONFUSED, RESTLESS, AND ANXIOUS. PATIENT IS COMPLIANT WITH MEDICATIONS. PM/AM CARE PROVIDED, KEPT CLEAN AND DRY. ALL HOSPITAL SAFETY PRECAUTIONS IN PLACE. WILL ENDORSE TO AM ONCOMING SHIFT NURSE.
[2021-12-06 07:13] LABS: BASOPHILS % (AUTO) 0.6 % (0.0-2.0); EOSINOPHILS % (AUTO) 4.8 % (0.0-6.0); HEMATOCRIT 33 % (33-45); LYMPHOCYTES # (AUTO) 1.5 K/uL (0.8-4.8); LYMPHOCYTES % (AUTO) 29.4 % (20.0-44.0); MEAN CORPUSCULAR HGB CONC 33 g/dl (31.0-36.0); MEAN CORPUSCULAR VOLUME 95 fL (82-100); MONOCYTES # (AUTO) 0.6 K/uL (0.1-1.30); MONOCYTES % (AUTO) 11.6 % (2.0-12.0); NEUTROPHILS # (AUTO) 2.7 K/uL (1.8-8.9); NEUTROPHILS % (AUTO) 53.6 % (43.0-81.0); PLATELET COUNT (AUTO) 154 K/uL (150-450); RED BLOOD CELL COUNT(AUTO) 3.46 MIL/uL (4.0-5.2); WHITE BLOOD COUNT (AUTO) 5.1 K/uL (4.3-11.0)
[2021-12-06 07:47] LABS: CALCIUM, SERUM 8.7 mg/dL (8.5-10.1); CREATININE 0.6 mg/dL (0.6-1.3)
--- NOTE | 2021-12-06 07:52 | NUR ---
SW Discharge Note: Patient will be discharged to a locked snf facility to [facility] [address] [place] [address]; ([phone]). Please arrange ambulance transportation. Glue Jointer Feeder spoke with Renetta, Garment Turner at [facility]; ([phone]), who stated patient will be accepted at facility today. Patient is alert and oriented x1. Patient denies any suicidal or homicidal ideations. Patient is aware and agreeable with discharge plans. Patients so Jens ([phone]). Patient will continue to follow-up with her (Psychiatrist) Dr. Mccarthy [id number] [facility], [place] [address]; ([phone]) and Safety Advisor Dr. Spencer [address] [facility] [address], [place] [address]; ([phone]). Patient presents with euthymic mood and congruent affect.
[2021-12-06 08:00] VITALS: BP 144/71
[2021-12-06] MEDS: GEMFIBROZIL 600 MG TABLET PO SCH (08:50)
[2021-12-06] MEDS: LIPASE/PROTEASE/AMYLASE 1 EACH CAPSULE.DR PO SCH ×2 (08:50→11:53)
[2021-12-06 08:51] VITALS: BP 144/71
[2021-12-06] MEDS: ASPIRIN 81 MG TAB.CHEW PO SCH (08:51)
[2021-12-06] MEDS: MONTELUKAST SODIUM (10MG) 10 MG TABLET PO SCH (08:51)
[2021-12-06] MEDS: AMLODIPINE BESYLATE 5 MG TABLET PO SCH (08:51)
[2021-12-06] MEDS: CARVEDILOL 3.125 MG TABLET PO SCH (08:51)
[2021-12-06] MEDS: cetrizine 10 MG TABLET PO SCH (08:51)
[2021-12-06] MEDS: MULTIVIT W/MINERALS 1 TAB TABLET PO SCH (08:51)
[2021-12-06] MEDS: CHOLECALCIFEROL 1,000 UNIT TABLET (VIT D3) PO SCH (08:52)
[2021-12-06] MEDS: OXCARBAZEPINE 150 MG TABLET PO SCH (08:52)
[2021-12-06] MEDS: PANTOPRAZOLE 40 MG TABLET.DR PO SCH (08:52)
[2021-12-06] MEDS: APIXABAN 2.5 MG TABLET PO SCH (08:53)
--- NOTE | 2021-12-06 09:12 | NUR ---
Dr. whittington gave an order to D/C hold and D/C to [facility] and to follow up with the psych and medical doctors. Psychiatrist reconcile on meds to continue in the facility. Addendum: 12/06/21 at 1600 by JAYLIN MELCHOR RN Dr. Spencer made aware of the discharge and reconciled meds to continue in the facility.
[2021-12-06] MEDS: ENSURE ENLIVE 237 ML LIQUID (VANILLA) PO SCH ×2 (10:58→11:53)
[2021-12-06] MEDS: Z GUARD REMEDY 4 OZ OINT TP SCH (10:59)
--- NOTE | 2021-12-06 13:40 | NUR ---
ms rn patient transferred to [facility],discharge instructions given, patient denies suicidal, homocidal, patient has no distress noted,all needs attended.
== END 2021-12-06 13:40 | DRG 885 ==
LOC: ER 20:39 → GPS 23:40
PROVIDERS: ADMIT Psychiatry & Neurology Psychiatry; ATTEND Internal Medicine
DX: F39 Unspecified mood [affective] disorder (principal); N17.0 Acute kidney failure with tubular necrosis; E44.1 Mild protein-calorie malnutrition; F03.91 Unspecified dementia, unspecified severity, with behavioral disturbance; F29 Unspecified psychosis not due to a substance or known physiological condition; I10 Essential (primary) hypertension; E78.5 Hyperlipidemia, unspecified; G89.29 Other chronic pain; Z88.4 Allergy status to anesthetic agent; Z88.0 Allergy status to penicillin; Z79.899 Other long term (current) drug therapy; Z73.6 Limitation of activities due to disability; E86.0 Dehydration; E88.09 Other disorders of plasma-protein metabolism, not elsewhere classified; J45.909 Unspecified asthma, uncomplicated; K86.81 Exocrine pancreatic insufficiency; Z98.890 Other specified postprocedural states; F33.3 Major depressive disorder, recurrent, severe with psychotic symptoms; Z68.26 Body mass index [BMI] 26.0-26.9, adult; E66.9 Obesity, unspecified; K21.9 Gastro-esophageal reflux disease without esophagitis; K92.9 Disease of digestive system, unspecified
CPT/HCPCS: 36415; 70450-TC; 80048-TC; 80061-TC; 80076-TC; 81001; 82565-TC; 82962-TC; 85025-TC; 87081-TC; 87086-TC; 97116-TC; 97530-TC; C9803; G0480; J3486